=== PATIENT | male | born 1980 | race Caucasian/White ===

== ENCOUNTER 2020-07-16 10:57 | Day surgery (SDC) | payer OTHER ==
[~2020-07-16 10:57] MED LIST: Lidocaine 1% PF 5 ML VIAL ONE; Ondansetron PF 4 MG/2 ML Vial ONE; PROPOFOL 200 MG/20 ML VIAL ONE; Succinylcholine Chloride 20 MG/ML 10 ml SYRINGE FS ONE
[2020-07-16] MEDS ORDERED: Fentanyl 100 MCG/2 ML VIAL ONE (14:00)
--- NOTE | 2020-07-16 17:41 | CON ---
DATE OF CONSULTATION: 07/16/2020 REASON FOR CONSULTATION: Food bolus impaction. CONSULTING PROVIDER: Belinda Church MD HISTORY OF PRESENT ILLNESS: The patient is a 39-year-old male with no significant past medical history, presenting with complaints of dysphagia that had been present for the last day. He states that he was in his usual state of health until yesterday evening when after taking a few bites of the turkey leg at approximately 6:00 p.m. last night he had acute onset of dysphagia, characterized by the sensation of the food getting stuck at the level of the sternal notch. This was associated with increased chest pressure in the region as well as nausea and vomiting with nonbloody emesis. Attempts to dislodge the food bolus by drinking water and inducing vomiting were both unsuccessful. Overnight, the patient felt that this would come out on its own, but unfortunately symptoms persisted to today, prompting him to come to the ER for further evaluation. Currently, he denies any fevers, chills, hematemesis, melena, hematochezia, diarrhea, constipation, or weight loss. He also denies any history of food impactions or eosinophilic esophagitis; however, he does endorse intermittent GERD symptoms, characterized as substernal pyrosis, that will occur approximately 1 to 2 times per month with dietary indiscretions and resolved with taking 1 to 2 Tums at that time. REVIEW OF SYSTEMS: A 10-category review of systems was obtained with all responses negative except for the pertinent positives as listed in HPI. PAST MEDICAL HISTORY: None. SURGICAL HISTORY: Eye surgery. FAMILY HISTORY: No GI malignancies. SOCIAL HISTORY: Denies any tobacco or illicit drug use. Drinks approximately 6 to 8 beers per day on the weekends. OUTPATIENT MEDICATIONS: Multivitamin. ALLERGIES: NO KNOWN DRUG ALLERGIES. PHYSICAL EXAMINATION: VITAL SIGNS: Not entered into the chart. GENERAL: The patient was lying in bed, in no acute distress. Alert and oriented x4. Emesis bag at bedside. HEENT: Normocephalic and atraumatic. Neck is supple. No JVD or scleral icterus noted. CARDIOVASCULAR: Tachycardic rate, but regular rhythm with no discernable murmurs, gallops, or rubs. RESPIRATORY: Clear to auscultation bilaterally with no discernable wheezes or rales. ABDOMEN: Normoactive bowel sounds. Soft and nondistended. Mild tenderness to palpation in the right upper quadrant. EXTREMITIES: No cyanosis, clubbing, or edema. LABORATORY DATA: No studies are available for review. IMAGING DATA: No current studies are available for review. ASSESSMENT AND PLAN: The patient is a 39-year-old male with no significant past medical history, presenting with an acute esophageal food bolus impaction. Esophageal food bolus impaction: The patient is presenting with acute onset of dysphagia after the consumption of turkey yesterday evening at approximately 6:00 p.m. last night with the sensation of the food got stuck at the level of the sternal notch. Attempts to dislodge the food bolus at home were unsuccessful. At the current time, the patient is unable to tolerate his own secretions, indicative of a complete obstruction of the esophagus, most likely secondary to the food bolus. At this time, urgent upper endoscopy is indicated for removal of the food bolus. RECOMMENDATIONS: 1. Would continue n.p.o. status in preparation for the upper endoscopy. 2. Would plan for urgent upper endoscopy today for removal of the esophageal food bolus impaction. 3. Would obtain routine labs prior to upper endoscopy as part of standard healthcare procedures. 4. Further recommendations to follow upper endoscopy. We will continue to follow. Please call with any questions. Job ID: [id number]
--- NOTE | 2020-07-16 19:09 | OP ---
DATE OF PROCEDURE: 07/16/2020 PROCEDURE PERFORMED: Esophagogastroduodenoscopy with removal of foreign body, biopsy. INDICATIONS FOR PROCEDURE: Esophageal food bolus impaction. DESCRIPTION OF PROCEDURE: After the risks and benefits of the procedure were explained to the patient including risks of bleeding, infection, perforation, reactions to anesthesia, aspiration, and/or pain, informed consent was obtained. The patient was then taken to the endoscopy suite where general anesthesia was administered followed by endotracheal tube intubation. Once the patient was adequately sedated and intubated, he was maneuvered into the left lateral decubitus position followed by introduction of the standard gastroscope with intubation of the esophagus, stomach, and the proximal small intestines with the findings listed below. The patient tolerated the procedure well with no immediate perioperative complications. Upon conclusion of the procedure, all equipment was removed from the patient and he was transferred to PACU in satisfactory condition. FINDINGS: Esophagus: A large food bolus was seen in the proximal esophagus at approximately 18 cm past the incisors and just distal to the upper esophageal sphincter. It occupied 100% of the esophageal lumen with complete obstruction and that was unable to be traversed with the gastroscope. Using Raptor forceps, the esophageal food bolus was removed in a piecemeal fashion through the mouth with complete removal of the food bolus on successive attempts. Upon removal of the food bolus, the underlying mucosa was able to be visualized. At the site of the food bolus, the esophageal mucosa was friable with mild oozing of blood in addition to ulcerated and had significant edema in the region generating narrowing of the esophageal lumen. However, this area was easily traversed with the standard gastroscope. Otherwise, the remainder of the esophagus appeared normal except for multiple circular rings noted throughout the entire esophagus (possible felinization) in addition to the mild appearance of longitudinal furrows concerning for the presence of eosinophilic esophagitis. Biopsies were then taken from the distal and proximal esophagus for further evaluation of possible eosinophilic esophagitis. Otherwise, there was no evidence of mass lesions throughout the entirety of the esophagus. Stomach: Normal-appearing mucosa was seen in the gastric cardia, fundus, body, greater curvature, antrum, and incisura. There was no evidence of erosions, ulcerations, mass lesions, or active/recent bleeding. Duodenum: Normal-appearing mucosa was seen in both the duodenal bulb and second portion of the duodenum. There was no evidence of erosions, ulcerations, mass lesions, or active/recent bleeding. IMPRESSION: 1. Obstructive food bolus in the proximal esophagus at 18 cm, status post complete removal. 2. Underlying mucosa at the food bolus impaction showing edema, friability, ulceration, and mild narrowing of the lumen, but easily traversed with the gastroscope. This was not dilated during this examination due to increased risk of perforation. 3. Multiple circular rings and mild longitudinal furrows seen along the entire length the esophagus, concerning for the presence of the eosinophilic esophagitis status post biopsies. RECOMMENDATIONS: 1. Would place the patient on a full liquid diet for the next 24 to 48 hours in light of significant edema and inflammation associated with the upper esophageal food bolus impaction, then advance the diet to a soft diet over the next few weeks. 2. Would follow up on the biopsy results for possible eosinophilic esophagitis and treat if positive. 3. If the patient's biopsies are positive for eosinophilic esophagitis, I would start the patient on omeprazole 40 mg daily. 4. Strongly encourage adequate chewing of food before swallowing. 5. The patient can be discharged to home with followup in the GI clinic as needed. Job ID: [id number]
== END 2020-07-16 15:30 | disposition home or self-care (01) ==
LOC: ERS 10:57 → EEVIPCON 10:57 → SDC 12:16
PROVIDERS: ATTEND Internal Medicine
PROC: 0DC58ZZ Extirpation of Matter from Esophagus, Via Natural or Artificial Opening Endoscopic (ICD-10-PCS; principal; 2020-07-16)
DX: T18.128A Food in esophagus causing other injury, initial encounter (principal); K20.0 Eosinophilic esophagitis
CPT/HCPCS: 88305; 88312; 88313; 99285; J2405; J2704; J3010